=== PATIENT | male | born 1955 | race Caucasian/White ===

== ENCOUNTER 2022-12-04 06:32 | Day surgery (SDC) | payer OTHER ==
[2022-11-25 16:11] LABS: ALBUMIN 3.9 G/DL (3.4-5.0); ALBUMIN/GLOBULIN RATIO 1.2 (1.1-1.5); ALKALINE PHOSPHATASE 55 IU/L (46-116); BLOOD UREA NITROGEN 19 MG/DL (7-18); CALCIUM 9.3 MG/DL (8.5-10.1); CHLORIDE 104 MMOL/L (99-107); CREATININE 1.12 MG/DL (0.60-1.10); PRE OP ALT 34 U/L (30-65); PRE OP ANION GAP 10 (8-16); PRE OP AST 17 U/L (10-37); PRE OP BILIRUB, TOTAL 0.3 MG/DL (0.0-1.0); PRE OP GLUCOSE 130 MG/DL (70-104); PRE OP POTASSIUM 4.1 MMOL/L (3.4-5.1); PRE OP SODIUM 138 MMOL/L (135-145); TOTAL CARBON DIOXIDE 23.6 MMOL/L (24-32); TOTAL PROTEIN 7.1 G/DL (6.4-8.2); eGFR 65 ML/MIN
[2022-11-25 16:18] LABS: BASOPHILS % (AUTO) 0.6 % (0-1); EOSINOPHILS % (AUTO) 0.5 % (0-6); LYMPHOCYTES # (AUTO) 1.7 X10'3 (1.1-4.8); LYMPHOCYTES % (AUTO) 23.4 % (21-51); MEAN CORPUSCULAR HEMOGLOBIN 32.3 PG (27.0-31.0); MEAN CORPUSCULAR HGB CONC 33.8 g/dL (33.0-36.5); MEAN CORPUSCULAR VOLUME 95.7 FL (78-98); MEAN PLATELET VOLUME 8.4 FL (7.4-10.4); MONOCYTES # (AUTO) 0.7 X10'3 (0-0.9); MONOCYTES % (AUTO) 9.4 % (2-12); NEUTROPHILS # (AUTO) 4.8 X10'3 (1.8-7.7); NEUTROPHILS % (AUTO) 66.1 % (42-75); PRE OP HEMATOCRIT 52.8 % (42.0-52.0); PRE OP HEMOGLOBIN 17.8 g/dL (14.0-17.9); PRE OP PLATELET COUNT 169 X10'3 (140-440); RED BLOOD COUNT 5.52 X10'6 (4.70-6.10); RED CELL DISTRIBUTION WIDTH 14.9 % (11.5-14.5)
[2022-12-04] VITALS (9 sets, daily range): BP systolic 115–162; BP diastolic 61–82
[~2022-12-04] VITALS: Ht 180.3 cm; Wt 158.8 kg
[~2022-12-04 06:32] MED LIST: EMPA25TA PO; GLIP5TAB13 PO; LISI20TA28 PO; METF-438 PO; OMEP20CA16 PO; SEMA1PEN3 SQ; SIMV-42 PO; ceFAZolin inj. 3,000 MG in normal saline 100ml IV soln 100 ML IV ONE; famotidine 20mg tablet PO ONE; ringers solution, lacted 500 ML IV SCH
[2022-12-04] MEDS ORDERED: BUPIVAcaine/PF 2.5mg/ml (0.25%) 10ml vial ONE (06:49)
[2022-12-04] MEDS ORDERED: morphine 2 MG/ML inj. syringe IV PRN (07:25)
[2022-12-04] MEDS ORDERED: morphine 4 MG/ML inj SYRINge IV PRN (07:25)
[2022-12-04] MEDS ORDERED: ondansetron/PF 4mg/2ml inj IV PRN (07:25)
[2022-12-04] MEDS ORDERED: ringers solution, lacted 1,000 ML IV SCH (07:25)
[2022-12-04] MEDS ORDERED: labetalol 20mg/4ml (5mg/ml) syringe IV PRN (07:25)
[2022-12-04] MEDS ORDERED: LIDOcaine 1% W/epiNEPHrine 1:100,000 20ml vial ONE (09:04)
[2022-12-04] MEDS ORDERED: fentaNYL/PF 50MCG/1 ML 2ML syringe ONE (09:16)
[2022-12-04] MEDS ORDERED: succinylcholine 20mg/ml inj IV ONE (09:17)
[2022-12-04] MEDS ORDERED: LIDOcaine 2% (20mg/ml) 5ml vial ONE (09:17)
[2022-12-04] MEDS ORDERED: midazolam 1 mg/ML 2ml injection ONE (09:17)
[2022-12-04] MEDS ORDERED: propofol inj 20 ML IV ONE ×2 (09:17)
[2022-12-04] MEDS ORDERED: desflurane 240ml liquid inh. IH ONE (09:19)
[2022-12-04] MEDS ORDERED: dexamethasone sod phosphate 10mg/ml inj ONE (09:19)
[2022-12-04] MEDS ORDERED: ondansetron/PF 4mg/2ml inj ONE (09:52)
[2022-12-04] MEDS ORDERED: BUPIVAcaine/PF 2.5mg/ml (0.25%) 10ml vial IJ ONE (10:45)
--- NOTE | 2022-12-04 11:00 | NUR ---
Received from OR via JAMES, accompanied by Anesthesiologist JAMES and report given by Anesthesiolgist. PT DROWSY, OXYGENATING WELL ON 10 LPM O2 VIA MASK, NO RESP DISTRESS NOTED. DENIES NAUSEA OR PAIN AT THIS TIME. ITALO BANDAGE OVER R ELBOW DSG, CDI. RADIAL PULSES PALP BILAT. VSS.
[2022-12-04] MEDS ORDERED: HYDROcodone/acetaminophen 10/325mg tab PO ONE (11:35)
--- NOTE | 2022-12-04 11:50 | NUR ---
NORCP 10 GIVEN FOR 02/08 R ELBOW PAIN. IT WAS ORDERED UNDER THE WRONG PHYSICIAN, SHOULD HAVE BEEN UNDER DR OROSCO'S NAME.
--- NOTE | 2022-12-04 12:20 | NUR ---
PT PAIN LEVEL TRENDING DOWN SLIGHTLY AFTER MEDS GIVEN IN PACU. ICE BAG PROVIDED WELL DIRECTIONS TO ELEVATE EXTREMITY. ITALO BANDAGE WAS RE WRAPPED, APPEARED TO BE TOO TIGHT CAUSING DISCOLORATION OF HAND/FINGERS. HAND COLOR IMPROVED AFTER ITALO WAS LOOSENED. PT ABLE TO MOVE FINGERS WITHOUT DIFFICULTY. TOLERATING PO FLUIDS WELL. VSS. DCD IN STABLE CONDITION, TAKEN TO CAR VIA WC. PT ACKNOWLEDGED UNDERSTANDING OD DC INSTRUCTIONS.
== END 2022-12-04 12:20 | disposition home or self-care (01) ==
LOC: PAS 06:32
PROVIDERS: ATTEND Orthopaedic Surgery Hand Surgery
DX: M19.021 Primary osteoarthritis, right elbow (principal); M65.821 Other synovitis and tenosynovitis, right upper arm; M24.021 Loose body in right elbow; E11.9 Type 2 diabetes mellitus without complications; M19.011 Primary osteoarthritis, right shoulder; M19.012 Primary osteoarthritis, left shoulder; E66.01 Morbid (severe) obesity due to excess calories; Z68.43 Body mass index [BMI] 50.0-59.9, adult; I10 Essential (primary) hypertension; G47.30 Sleep apnea, unspecified; Z96.643 Presence of artificial hip joint, bilateral; Z79.899 Other long term (current) drug therapy; Z79.84 Long term (current) use of oral hypoglycemic drugs; Z98.890 Other specified postprocedural states; Z72.89 Other problems related to lifestyle; Z83.3 Family history of diabetes mellitus; Z80.9 Family history of malignant neoplasm, unspecified
CPT/HCPCS: 24101; 29837; 36415; 80053; 82948; 85025; J0330; J0690; J2250; J2270; J2405; J2704; J3010; J3490; J7120; Z7506; Z7508; Z7512; A4215; A4355; A4618; A6449; A7000; J1100